=== PATIENT | male | born 1990 | race Asian ===

== ENCOUNTER 2017-03-25 19:22 | Emergency (ER) | payer OTHER ==
[2017-03-25 19:58] VITALS: BP 128/70; PULSE 95; TEMP 98.1; BMI 28.7
--- NOTE | 2017-03-25 20:21 | PDOC ---
History of Present Illness - General Chief Complaint: Back Pain Stated Complaint: PCP SENT/BACK PAIN Time Seen by Provider: 03/25/17 20:16 History Source: Patient Exam Limitations: No Limitations - History of Present Illness Initial Comments: CHIEF COMPLAINT: 26 y/o afebrile male with no significant PMH c/o back pain. 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 He had CT scans of his thoracic and cervical spine 2 days ago which shows no gross abnormality. He states yesterday he went for trigger shots and states he got about 10-15 trigger shots in his back. He states the pain seemed relieved yesterday but when he laid down last night it returned and is the worst it's been. He called his primary doctor, Dr. Bueno, today, who ordered MRIs of his back and told him to come here if the pain got too intense. He is currently only taking tylenol with little relief. He does admit the tips of his fingers feeling tingly sometimes but denies changes in vision/hearing, f/c, n/v/d, saddle anesthesia, bowel/bladder incontinence. Vital signs on arrival are within normal limits. REVIEW OF SYSTEMS: GENERAL/CONSTITUTIONAL: No fever/chills. No weakness. No weight change. HEAD, EYES, EARS, NOSE AND THROAT: No change in vision. No ear pain or discharge. No sore throat. CARDIOVASCULAR: No chest pain or shortness of breath. RESPIRATORY: No cough, wheezing, or hemoptysis. GASTROINTESTINAL: No abd pain, nausea, vomiting, diarrhea. GENITOURINARY: No dysuria, frequency, or change in urination. MUSCULOSKELETAL: No joint or muscle swelling or pain. +neck and back pain. SKIN: No rash or easy bruising. NEUROLOGIC: No headache, vertigo, loss of consciousness, or loss of sensation. PHYSICAL EXAM: GENERAL: The patient is awake, alert, and fully oriented, in no acute distress. He has to turn his entire body to look in another direction and moves his upper body very slowly. HEAD: Normal with no signs of trauma. NECK: No midline cervical spine TTP or step offs. ENT: Pupils equal, round and reactive to light, extraocular movements intact, sclera anicteric, conjunctiva clear. LUNGS: Clear to auscultation bilaterally. Normal excursion. No respiratory distress or use of accessory muscles. CV: RRR, S1/S2, no MRG. Cap refill < 2 sec. ABDOMEN: Soft, non-distended, non-tender even to deep palpation, no hepatomegaly or splenomegaly, no masses. BACK: TTP of entire thoracic region, including midline. No step offs. EXTREMITIES: Normal range of motion, no edema. NEUROLOGICAL: Normal speech, normal gait. CN II-XII grossly intact. no saddle anesthesia. PSYCH: Normal mood, normal affect. SKIN: Warm, dry, normal turgor, no rashes or lesions noted. Past History - Past Medical History Allergies/Adverse Reactions: Allergies Allergy/AdvReac Type Severity Reaction Status Date / Time No Known Allergies Allergy Verified 03/25/17 19:49 Home Medications: Ambulatory Orders Dicyclomine HCl 20 mg PO TID 08/14/14 Sertraline HCl [Zoloft -] 50 mg PO DAILY 08/14/14 Famotidine [Pepcid] 40 mg PO DAILY #10 tablet 08/15/14 Oxycodone HCl/Acetaminophen [Percocet 5-325 mg Tablet] 1 - 2 tab PO Q6H #10 tab MDD 5 03/25/17 - Immunization History Immunization Up to Date: Yes - Psycho/Social/Smoking Cessation Hx Anxiety: No Suicidal Ideation: No Smoking History: Current every day smoker Have you smoked in the past 12 months: No Number of Cigarettes Smoked Daily: 10 Cigars Per Day: 0 Information on smoking cessation initiated: No Hx Alcohol Use: No Drug/Substance Use Hx: No Substance Use Type: None *Physical Exam - Vital Signs Last Vital Signs Temp Pulse Resp BP Pulse Ox 98.1 F 95 H 17 128/70 100 03/25/17 19:50 03/25/17 19:50 03/25/17 19:50 03/25/17 19:50 03/25/17 19:50 Medical Decision Making - Medical Decision Making A/P: 26 y/o male here for pain medication after worsening of back pain. CT scan of cervical and thoracic spines performed 2 days ago show no acute abnormalities. Plan is as follows: 1. IM toradol 2. PO valium Pt refused toradol shot because he is scared of shots now after the trigger injections. He states he is still in 10/10 pain. Will give 2 PO percocet The patient now rates his pain at 6/10 and appears much more comfortable. Will discharge to home with rx for percocet. Instructed him not to drive while taking percocet as it can cause drowsiness. He is following up with MRIs tomorrow. Suggested he return to the ER immediately with any worsening or concerning symptoms. The patient verbalizes understanding of all instructions, has no further questions and is awaiting discharge. *DC/Admit/Observation/Transfer Diagnosis at time of Disposition: Back pain Qualifiers: Back pain location: back pain in unspecified location Chronicity: acute Back pain laterality: bilateral Qualified Code(s): M54.9 - Dorsalgia, unspecified - Discharge Dispostion Disposition: HOME Condition at time of disposition: Improved - Prescriptions Prescriptions: Oxycodone HCl/Acetaminophen [Percocet 5-325 mg Tablet] 1 - 2 tab PO Q6H #10 tab MDD 5 - Referrals Referrals: Chelsea Bueno MD [Primary Care Provider] - - Patient Instructions Printed Discharge Instructions: DI for Thoracic Back Pain Additional Instructions: Discharge Instructions: -Take percocet as prescribed; it may cause drowsiness or dizziness so do not drive while taking -Follow up with Dr. Bueno tomorrow -return to the ER immediately with any worsening or concerning symptoms. - Post Discharge Activity Work/School Note: Back to Work
[2017-03-25] MEDS ORDERED: KETOROLAC TROMETHAMINE 60 MG/2 ML VIAL IM ONE (20:44)
[2017-03-25] MEDS ORDERED: diazePAM 5 MG TABLET PO ONE (20:44)
[2017-03-25] MEDS ORDERED: diazePAM 5 MG TABLET ONE (20:51)
[2017-03-25] MEDS ORDERED: KETOROLAC TROMETHAMINE 60 MG/2 ML VIAL ONE (20:51)
[2017-03-25] MEDS ORDERED: OXYCODONE/APAP 5/325MG COMBO TABLET ONE (21:27)
== END 2017-03-25 22:17 | disposition home or self-care (01) ==
LOC: JERFT 19:22
DX: M54.89 Other dorsalgia (principal); F17.210 Nicotine dependence, cigarettes, uncomplicated; X50.0XXA Overexertion from strenuous movement or load, initial encounter; Y93.H3 Activity, building and construction; Y92.61 Building [any] under construction as the place of occurrence of the external cause; Y99.8 Other external cause status
CPT/HCPCS: 99281-25